=== PATIENT | female | born 1950 | race Caucasian/White ===

== ENCOUNTER 2024-01-20 07:13 | Emergency (ER) | payer BC ==
[2024-01-20] MEDS ORDERED: Sodium Chloride 0.9% 10 ML Syringe FLUSH PRN (07:54)
[2024-01-20] MEDS: Sodium Chloride 0.9% 1,000 ML IV ONE (08:01)
[2024-01-20 08:02] LABS: BASOPHILS PERCENT AUTO 0.1 % (0.0-1.0); EOSINOPHILS PERCENT AUTO 0.1 % (1.0-3.0); HEMATOCRIT 36.3 % (37.0-47.0); HEMOGLOBIN 11.5 g/dL (12.0-16.0); LYMPHOCYTES PERCENT AUTO 9.8 % (20.5-50.1); MEAN CORPUSCULAR HEMOGLOBIN 28.9 pg (27.0-34.0); MEAN CORPUSCULAR HGB CONC 31.7 g/dL (33.0-35.0); MEAN CORPUSCULAR VOLUME 91.2 fL (80-100); PLATELET COUNT,PLT 576 10^3/uL (150-450); RED BLOOD CELL COUNT 3.98 10^6/uL (4.2-5.4)
[2024-01-20 08:11] LABS: ALANINE AMINOTRANSFERASE,ALT 17 U/L (14-59); ALBUMIN 3.2 g/dL (3.4-5.0); ALKALINE PHOSPHATASE 103 U/L (46-116); AMYLASE 55 U/L (25-115); ANION GAP 12.7 mEq/L (7-13); ASPARTATE AMNIOTRANSFERASE,AST 22 U/L (15-37); BILIRUBIN TOTAL 0.3 mg/dL (0.2-1.0); BLOOD UREA NITROGEN,BUN 82 mg/dL (7-18); BUN/CREATININE RATIO 23.8 (No establ ref range); CALCIUM 10.8 mg/dL (8.5-10.1); CARBON DIOXIDE,CO2 22 mmol/L (21-32); CHLORIDE,CL 95 mmol/L (98-107); CREATININE 3.44 mg/dL (0.55-1.02); GLUCOSE RANDOM 198 mg/dL (70-99); LIPASE 68 U/L (16-77); MAGNESIUM 2.4 mg/dL (1.8-2.4); POTASSIUM,K 5.7 mmol/L (3.5-5.1); PROTEIN TOTAL,TP 8.8 g/dL (6.4-8.2); SODIUM,NA 124 mmol/L (136-145)
[2024-01-20 08:13] LABS: A/G RATIO 0.57; ESTIMATED GFR 13 mL/min (>=60)
[2024-01-20] MEDS: Pantoprazole 40 MG Vial IVPUSH ONE ×3 (08:42→10:03)
[2024-01-20] MEDS: Pantoprazole 80 MG in Sodium Chloride 0.9% 100 ML IV SCH (09:05)
[2024-01-20] MEDS: Pantoprazole 40 MG Vial IV SCH (09:18)
== END 2024-01-20 09:57 ==
LOC: DL.ED 07:13
DX: K92.1 Melena (principal); Z79.01 Long term (current) use of anticoagulants; Z79.899 Other long term (current) drug therapy
CPT/HCPCS: 36415; 80053; 82150; 82272; 83690; 83735; 85025; 96361; 96365; 99285; 99285-25; J2470; J3490; J7030

== ENCOUNTER 2024-10-10 14:51 | Inpatient (IN) | payer MEDICARE, BC ==
[2024-10-10] MEDS ORDERED: Sodium Chloride 0.9% 10 ML Syringe FLUSH PRN (15:31)
[2024-10-10] MEDS: Potassium Chloride 10 MEQ Tab.ER PO ONE (15:43)
[2024-10-10 16:02] LABS: INR 1.1 (0.9-1.2); PROTHROMBIN TIME 11.1 SEC (9.0-12.0)
[2024-10-10] MEDS: Furosemide 40 MG/4 ML VIAL IVPUSH ONE (16:23)
[2024-10-10 17:13] LABS: BASOPHILS PERCENT AUTO 0.2 % (0.0-1.0); EOSINOPHILS PERCENT AUTO 1.7 % (1.0-3.0); HEMATOCRIT 37.1 % (37.0-47.0); HEMOGLOBIN 11.4 g/dL (12.0-16.0); LYMPHOCYTES PERCENT AUTO 18.6 % (20.5-50.1); MEAN CORPUSCULAR HEMOGLOBIN 28.3 pg (27.0-34.0); MEAN CORPUSCULAR HGB CONC 30.7 g/dL (33.0-35.0); MEAN CORPUSCULAR VOLUME 92.1 fL (80-100); MONOCYTES PERCENT AUTO 9.4 % (2-8); NEUTROPHILS PERCENT AUTO 70.1 % (42.2-75.2); PLATELET COUNT,PLT 306 10^3/uL (150-450); RED BLOOD CELL COUNT 4.03 10^6/uL (4.2-5.4); WHITE BLOOD CELL COUNT,WBC 8.4 10^3/uL (5.0-10.0)
[2024-10-10 17:26] LABS: ALBUMIN 2.8 g/dL (3.4-5.0); ANION GAP 10.6 mEq/L (7-13); BILIRUBIN TOTAL 0.6 mg/dL (0.2-1.0); BUN/CREATININE RATIO 13.1 (No establ ref range); CALCIUM 8.3 mg/dL (8.5-10.1); CREATININE 1.07 mg/dL (0.55-1.02); EST CRCL DRUG DOSING (CG) 40.73 mL/min; POTASSIUM,K 3.6 mmol/L (3.5-5.1); PROTEIN TOTAL,TP 7.5 g/dL (6.4-8.2)
[2024-10-10 17:33] LABS: A/G RATIO 0.6
[2024-10-10] MEDS ORDERED: Albuterol/Ipratropium 3.0-0.5 MG/3 ML Neb Soln NEB PRN (18:24)
[2024-10-10] MEDS ORDERED: Bisacodyl 5 MG Tab PO PRN (18:24)
[2024-10-10] MEDS ORDERED: Polyethylene Glycol 3350 Powder 17 GM Packet PO PRN (18:24)
[2024-10-10] MEDS ORDERED: Sennosides/Docusate Sodium 50-8.6 MG Tab PO PRN (18:24)
[2024-10-10] MEDS ORDERED: Docusate Sodium 100 MG Cap PO PRN (18:24)
[2024-10-10] MEDS ORDERED: Ondansetron 4 MG/2 ML SDV IVPUSH PRN (18:24)
[2024-10-10] MEDS: Magnesium Sulf/Wat 2 GM/50 mL 2 GM in Premix Bag 1 BAG IV ONE ×3 (19:44→22:55)
[2024-10-10] MEDS ORDERED: Magnesium Sulf/Wat 2 GM/50 mL 2 GM in Premix Bag 1 BAG IV ONE (20:30)
[2024-10-10] MEDS: Pantoprazole 40 MG Tab.CR PO SCH (20:31)
[2024-10-10] MEDS: Melatonin 3 MG Tab PO PRN (20:31)
[2024-10-10] MEDS: Empagliflozin 10 MG Tab PO SCH (20:31)
[2024-10-10] MEDS: oxyCODONE 5 MG Tab PO PRN (20:32)
[2024-10-11 07:27] LABS: ALBUMIN 2.4 g/dL (3.4-5.0); ANION GAP 6.5 mEq/L (7-13); BILIRUBIN TOTAL 0.6 mg/dL (0.2-1.0); BUN/CREATININE RATIO 11.9 (No establ ref range); CALCIUM 8.5 mg/dL (8.5-10.1); CREATININE 1.01 mg/dL (0.55-1.02); EST CRCL DRUG DOSING (CG) 43.15 mL/min; MAGNESIUM 2.3 mg/dL (1.8-2.4); PERCENT FE SATURATION 20.4 % (20.0-50.0); POTASSIUM,K 3.5 mmol/L (3.5-5.1); PROTEIN TOTAL,TP 6.4 g/dL (6.4-8.2)
[2024-10-11 07:31] LABS: A/G RATIO 0.6
[2024-10-11 07:35] LABS: BASOPHILS PERCENT AUTO 0.3 % (0.0-1.0); HEMATOCRIT 33.7 % (37.0-47.0); HEMOGLOBIN 10.7 g/dL (12.0-16.0); LYMPHOCYTES PERCENT AUTO 26.6 % (20.5-50.1); MEAN CORPUSCULAR HEMOGLOBIN 29.2 pg (27.0-34.0); MEAN CORPUSCULAR HGB CONC 31.8 g/dL (33.0-35.0); MEAN CORPUSCULAR VOLUME 91.8 fL (80-100); MONOCYTES PERCENT AUTO 13.2 % (2-8); NEUTROPHILS PERCENT AUTO 57.9 % (42.2-75.2); PLATELET COUNT,PLT 261 10^3/uL (150-450); RED BLOOD CELL COUNT 3.67 10^6/uL (4.2-5.4); WHITE BLOOD CELL COUNT,WBC 6.6 10^3/uL (5.0-10.0)
[2024-10-11] MEDS: Metoprolol Succinate 25 MG Tab.ER PO SCH (08:45)
[2024-10-11] MEDS: atorvaSTATin 20 MG Tab PO SCH (08:45)
[2024-10-11] MEDS: Aspirin 81 MG Tab.EC PO SCH (08:45)
[2024-10-11] MEDS: Amiodarone 200 MG Tab PO SCH (08:45)
[2024-10-11] MEDS: Escitalopram 10 MG Tab PO SCH (08:46)
[2024-10-11] MEDS: Clopidogrel 75 MG Tab PO SCH (08:46)
[2024-10-11] MEDS: Furosemide 40 MG Tab PO SCH (10:00)
[2024-10-12 06:37] LABS: EOSINOPHILS PERCENT AUTO 1.6 % (1.0-3.0); HEMATOCRIT 34.7 % (37.0-47.0); HEMOGLOBIN 10.9 g/dL (12.0-16.0); LYMPHOCYTES PERCENT AUTO 26.2 % (20.5-50.1); MEAN CORPUSCULAR HEMOGLOBIN 28.9 pg (27.0-34.0); MEAN CORPUSCULAR HGB CONC 31.4 g/dL (33.0-35.0); MONOCYTES PERCENT AUTO 13.7 % (2-8); NEUTROPHILS PERCENT AUTO 58.5 % (42.2-75.2); PLATELET COUNT,PLT 251 10^3/uL (150-450); RED BLOOD CELL COUNT 3.77 10^6/uL (4.2-5.4); WHITE BLOOD CELL COUNT,WBC 6.9 10^3/uL (5.0-10.0)
[2024-10-12 07:08] LABS: ALBUMIN 2.4 g/dL (3.4-5.0); ANION GAP 8.7 mEq/L (7-13); BILIRUBIN TOTAL 0.6 mg/dL (0.2-1.0); BUN/CREATININE RATIO 12.9 (No establ ref range); CALCIUM 8.8 mg/dL (8.5-10.1); CREATININE 1.01 mg/dL (0.55-1.02); EST CRCL DRUG DOSING (CG) 41.99 mL/min; MAGNESIUM 1.9 mg/dL (1.8-2.4); POTASSIUM,K 3.7 mmol/L (3.5-5.1); PROTEIN TOTAL,TP 6.5 g/dL (6.4-8.2)
[2024-10-12 07:09] LABS: A/G RATIO 0.59
[2024-10-12] MEDS: Potassium Chloride 10 MEQ Tab.ER PO ONE ×2 (08:56→14:15)
[2024-10-12] MEDS: Acetaminophen 325 MG Tab PO PRN (08:57)
[2024-10-12] MEDS: Magnesium Oxide 400 MG Tab PO SCH (09:00)
[2024-10-12] MEDS: Furosemide 40 MG Tab PO ONE (14:16)
[2024-10-13 06:30] LABS: BASOPHILS PERCENT AUTO 0.1 % (0.0-1.0); EOSINOPHILS PERCENT AUTO 0.5 % (1.0-3.0); HEMATOCRIT 32.7 % (37.0-47.0); HEMOGLOBIN 10.4 g/dL (12.0-16.0); LYMPHOCYTES PERCENT AUTO 19.4 % (20.5-50.1); MEAN CORPUSCULAR HEMOGLOBIN 29.1 pg (27.0-34.0); MEAN CORPUSCULAR HGB CONC 31.8 g/dL (33.0-35.0); MEAN CORPUSCULAR VOLUME 91.6 fL (80-100); MONOCYTES PERCENT AUTO 14.9 % (2-8); NEUTROPHILS PERCENT AUTO 65.1 % (42.2-75.2); PLATELET COUNT,PLT 247 10^3/uL (150-450); RED BLOOD CELL COUNT 3.57 10^6/uL (4.2-5.4); WHITE BLOOD CELL COUNT,WBC 9.3 10^3/uL (5.0-10.0)
[2024-10-13 06:52] LABS: ALBUMIN 2.2 g/dL (3.4-5.0); ANION GAP 9.8 mEq/L (7-13); BILIRUBIN TOTAL 0.7 mg/dL (0.2-1.0); BUN/CREATININE RATIO 13.9 (No establ ref range); CALCIUM 8.6 mg/dL (8.5-10.1); CREATININE 1.08 mg/dL (0.55-1.02); EST CRCL DRUG DOSING (CG) 39.01 mL/min; MAGNESIUM 1.7 mg/dL (1.8-2.4); POTASSIUM,K 3.8 mmol/L (3.5-5.1); PROTEIN TOTAL,TP 6.2 g/dL (6.4-8.2)
[2024-10-13 06:53] LABS: A/G RATIO 0.55
[2024-10-13] MEDS: guaiFENesin 600 MG Tab.ER PO SCH (16:37)
[2024-10-13] MEDS: Azithromycin 250 MG Tab PO SCH (16:38)
[2024-10-13] MEDS: predniSONE 20 MG Tab PO SCH (16:38)
[2024-10-13] MEDS: Magnesium Oxide 400 MG Tab PO SCH (16:38)
[2024-10-13] MEDS: cefTRIAXone 1 GM Vial IVPUSH SCH (16:40)
[2024-10-14] MEDS: predniSONE 20 MG Tab PO SCH (04:33)
[2024-10-14] MEDS: guaiFENesin 600 MG Tab.ER PO SCH (04:35)
[2024-10-14] MEDS: Azithromycin 250 MG Tab PO SCH (04:36)
[2024-10-14 06:24] LABS: BASOPHILS PERCENT AUTO 0.1 % (0.0-1.0); HEMOGLOBIN 10.5 g/dL (12.0-16.0); LYMPHOCYTES PERCENT AUTO 12.1 % (20.5-50.1); MEAN CORPUSCULAR HEMOGLOBIN 28.8 pg (27.0-34.0); MEAN CORPUSCULAR HGB CONC 31.8 g/dL (33.0-35.0); MEAN CORPUSCULAR VOLUME 90.4 fL (80-100); NEUTROPHILS PERCENT AUTO 76.8 % (42.2-75.2); PLATELET COUNT,PLT 254 10^3/uL (150-450); RED BLOOD CELL COUNT 3.65 10^6/uL (4.2-5.4); WHITE BLOOD CELL COUNT,WBC 10.3 10^3/uL (5.0-10.0)
[2024-10-14 06:50] LABS: A/G RATIO 0.5; ALBUMIN 2.2 g/dL (3.4-5.0); BILIRUBIN TOTAL 0.5 mg/dL (0.2-1.0); BUN/CREATININE RATIO 17.1 (No establ ref range); CALCIUM 9.2 mg/dL (8.5-10.1); CREATININE 1.17 mg/dL (0.55-1.02); EST CRCL DRUG DOSING (CG) 35.64 mL/min; MAGNESIUM 1.8 mg/dL (1.8-2.4); PROTEIN TOTAL,TP 6.6 g/dL (6.4-8.2)
[2024-10-14] MEDS: Potassium Chloride 10 MEQ Tab.ER PO ONE (08:41)
[2024-10-14] MEDS: cefTRIAXone 1 GM Vial IVPUSH ONE (10:03)
[2024-10-14] MEDS ORDERED: Potassium Chloride 10 MEQ Tab.ER PO SCH (17:00)
== END 2024-10-14 10:20 | disposition home or self-care (01) | DRG 291 ==
LOC: DL.ED 14:51 → DL.MS 16:15
PROVIDERS: ADMIT Internal Medicine; ATTEND Internal Medicine
DX: I13.0 Hypertensive heart and chronic kidney disease with heart failure and stage 1 through stage 4 chronic kidney disease, or unspecified chronic kidney disease (principal); J18.9 Pneumonia, unspecified organism; E87.0 Hyperosmolality and hypernatremia; I50.9 Heart failure, unspecified; I25.10 Atherosclerotic heart disease of native coronary artery without angina pectoris; N18.9 Chronic kidney disease, unspecified; F41.9 Anxiety disorder, unspecified; D63.8 Anemia in other chronic diseases classified elsewhere; E83.42 Hypomagnesemia; E88.09 Other disorders of plasma-protein metabolism, not elsewhere classified; I48.0 Paroxysmal atrial fibrillation; E86.0 Dehydration; Z79.82 Long term (current) use of aspirin; Z79.899 Other long term (current) drug therapy; Z98.890 Other specified postprocedural states; Z86.73 Personal history of transient ischemic attack (TIA), and cerebral infarction without residual deficits; Z87.891 Personal history of nicotine dependence; Z95.5 Presence of coronary angioplasty implant and graft
CPT/HCPCS: 36415; 71046; 80053; 82728; 82947; 83540; 83550; 83735; 83880; 83935; 84484; 85025; 85610; 87040; 93005; 93010; 94010; 97161-GP; 97165-GO; 99223; 99232; 99233; 99238; 99285; A9270-GY; J0696; J1938; J3475; J7512

== ENCOUNTER 2024-11-14 15:24 | Observation (INO) | payer MEDICARE, BC ==
[2024-11-14] MEDS ORDERED: Sodium Chloride 0.9% 10 ML Syringe FLUSH PRN (15:42)
[2024-11-14 16:16] LABS: BASOPHILS PERCENT AUTO 0.1 % (0.0-1.0); EOSINOPHILS PERCENT AUTO 1.3 % (1.0-3.0); HEMATOCRIT 34.4 % (37.0-47.0); HEMOGLOBIN 10.9 g/dL (12.0-16.0); LYMPHOCYTES PERCENT AUTO 17.8 % (20.5-50.1); MEAN CORPUSCULAR HEMOGLOBIN 28.3 pg (27.0-34.0); MEAN CORPUSCULAR HGB CONC 31.7 g/dL (33.0-35.0); MEAN CORPUSCULAR VOLUME 89.4 fL (80-100); MONOCYTES PERCENT AUTO 12.2 % (2-8); NEUTROPHILS PERCENT AUTO 68.6 % (42.2-75.2); PLATELET COUNT,PLT 344 10^3/uL (150-450); RED BLOOD CELL COUNT 3.85 10^6/uL (4.2-5.4)
[2024-11-14 16:39] LABS: ALBUMIN 2.2 g/dL (3.4-5.0); ANION GAP 9.8 mEq/L (7-13); BILIRUBIN TOTAL 0.4 mg/dL (0.2-1.0); BUN/CREATININE RATIO 14.2 (No establ ref range); CALCIUM 8.1 mg/dL (8.5-10.1); CREATININE 1.2 mg/dL (0.55-1.02); EST CRCL DRUG DOSING (CG) 34.93 mL/min; POTASSIUM,K 2.8 mmol/L (3.5-5.1); PROTEIN TOTAL,TP 7.1 g/dL (6.4-8.2)
[2024-11-14 16:40] LABS: A/G RATIO 0.45; MAGNESIUM 0.9 mg/dL (1.8-2.4)
[2024-11-14] MEDS: Sodium Chloride 0.9% 500 ML IV SCH (17:26)
[2024-11-14] MEDS: Potassium Chloride 20 MEQ in Premix Bag 1 BAG IV ONE (17:26)
[2024-11-14] MEDS: Potassium Chloride 10 MEQ Tab.ER PO ONE (17:26)
[2024-11-14] MEDS: Magnesium Sulf/Wat 4 GM/50 mL 4 GM in Premix Bag 1 BAG IV ONE (17:46)
[2024-11-14] MEDS ORDERED: Ondansetron 4 MG/2 ML SDV IVPUSH PRN (18:44)
[2024-11-14] MEDS ORDERED: Acetaminophen 325 MG Tab PO PRN (18:44)
[2024-11-14] MEDS ORDERED: Bisacodyl 5 MG Tab PO PRN (18:44)
[2024-11-14] MEDS ORDERED: Docusate Sodium 100 MG Cap PO PRN (18:44)
[2024-11-14] MEDS ORDERED: Polyethylene Glycol 3350 Powder 17 GM Packet PO PRN (18:44)
[2024-11-14] MEDS: Melatonin 3 MG Tab PO PRN (21:07)
[2024-11-14] MEDS: Pantoprazole 40 MG Tab.CR PO SCH (21:07)
[2024-11-14 22:28] LABS: MAGNESIUM 1.9 mg/dL (1.8-2.4)
[2024-11-14 22:29] LABS: POTASSIUM,K 4.2 mmol/L (3.5-5.1)
[2024-11-15] MEDS: Escitalopram 10 MG Tab PO SCH (08:08)
[2024-11-15] MEDS: Furosemide 40 MG Tab PO SCH (08:08)
[2024-11-15] MEDS: atorvaSTATin 20 MG Tab PO SCH (08:08)
[2024-11-15] MEDS: Clopidogrel 75 MG Tab PO SCH (08:08)
[2024-11-15] MEDS: Metoprolol Succinate 25 MG Tab.ER PO SCH (08:09)
[2024-11-15] MEDS: Aspirin 81 MG Tab.EC PO SCH (08:09)
[2024-11-15] MEDS: Amiodarone 200 MG Tab PO SCH (08:09)
[2024-11-15 08:21] LABS: BASOPHILS PERCENT AUTO 0.1 % (0.0-1.0); EOSINOPHILS PERCENT AUTO 1.4 % (1.0-3.0); HEMATOCRIT 33.5 % (37.0-47.0); HEMOGLOBIN 10.7 g/dL (12.0-16.0); MEAN CORPUSCULAR HEMOGLOBIN 28.6 pg (27.0-34.0); MEAN CORPUSCULAR HGB CONC 31.9 g/dL (33.0-35.0); MEAN CORPUSCULAR VOLUME 89.6 fL (80-100); MONOCYTES PERCENT AUTO 11.9 % (2-8); NEUTROPHILS PERCENT AUTO 68.6 % (42.2-75.2); PLATELET COUNT,PLT 313 10^3/uL (150-450); RED BLOOD CELL COUNT 3.74 10^6/uL (4.2-5.4); WHITE BLOOD CELL COUNT,WBC 9.9 10^3/uL (5.0-10.0)
[2024-11-15 08:42] LABS: A/G RATIO 0.44; ALBUMIN 2.2 g/dL (3.4-5.0); ANION GAP 11.8 mEq/L (7-13); BILIRUBIN TOTAL 0.5 mg/dL (0.2-1.0); BUN/CREATININE RATIO 14.6 (No establ ref range); CALCIUM 8.8 mg/dL (8.5-10.1); CREATININE 1.03 mg/dL (0.55-1.02); EST CRCL DRUG DOSING (CG) 40.45 mL/min; MAGNESIUM 1.8 mg/dL (1.8-2.4); POTASSIUM,K 3.8 mmol/L (3.5-5.1); PROTEIN TOTAL,TP 7.2 g/dL (6.4-8.2)
== END 2024-11-15 11:09 | disposition home or self-care (01) ==
LOC: DL.ED 15:24 → DL.MS 18:30 → DL.ED 18:58
PROVIDERS: ADMIT Student in an Organized Health Care Education/Training Program; ATTEND Student in an Organized Health Care Education/Training Program
DX: E83.42 Hypomagnesemia (principal); E87.6 Hypokalemia; I13.0 Hypertensive heart and chronic kidney disease with heart failure and stage 1 through stage 4 chronic kidney disease, or unspecified chronic kidney disease; I50.30 Unspecified diastolic (congestive) heart failure; N18.9 Chronic kidney disease, unspecified; I25.10 Atherosclerotic heart disease of native coronary artery without angina pectoris; F41.9 Anxiety disorder, unspecified; Z79.899 Other long term (current) drug therapy
CPT/HCPCS: 36415; 71045; 80053; 83735; 83880; 84132; 84484; 85025; 93005; 93010; 96365; 96366; 96368; 99223; 99238; 99285; A9270; G0378; J3475; J3480; J7040

== ENCOUNTER 2025-02-22 14:32 | Emergency (ER) | payer MEDICARE, BC ==
[2025-02-22] MEDS ORDERED: Sodium Chloride 0.9% 10 ML Syringe FLUSH PRN ×2 (14:45)
[2025-02-22 15:01] LABS: BASOPHILS PERCENT AUTO 0.2 % (0.0-1.0); EOSINOPHILS PERCENT AUTO 1.8 % (1.0-3.0); LYMPHOCYTES PERCENT AUTO 37.7 % (20.5-50.1); MONOCYTES PERCENT AUTO 12.6 % (2-8); NEUTROPHILS PERCENT AUTO 47.7 % (42.2-75.2); PLATELET COUNT,PLT 346 10^3/uL (150-450); RED BLOOD CELL COUNT 3.03 10^6/uL (4.2-5.4); WHITE BLOOD CELL COUNT,WBC 6.5 10^3/uL (5.0-10.0)
[2025-02-22 15:14] LABS: INR 1.1 (0.9-1.2)
[2025-02-22 15:22] LABS: A/G RATIO 0.72; ALANINE AMINOTRANSFERASE,ALT 17.0 U/L (14-59); ASPARTATE AMNIOTRANSFERASE,AST 15.0 U/L (15-37); BILIRUBIN TOTAL 0.2 mg/dL (0.2-1.0); BLOOD UREA NITROGEN,BUN 34.0 mg/dL (7-18); CARBON DIOXIDE,CO2 29.0 mmol/L (21-32); CHLORIDE,CL 104.0 mmol/L (98-107); CREATININE 1.85 mg/dL (0.55-1.02); EST CRCL DRUG DOSING (CG) 21.73 mL/min; ESTIMATED GFR 28.0 mL/min (>=60); GLUCOSE RANDOM 121.0 mg/dL (70-99); POTASSIUM,K 4.7 mmol/L (3.5-5.1); PROTEIN TOTAL,TP 7.4 g/dL (6.4-8.2); SODIUM,NA 137.0 mmol/L (136-145)
[2025-02-22] MEDS: Propofol 200 MG/20 ML SDV IVPUSH ONE (15:40)
== END 2025-02-22 18:28 | disposition home or self-care (01) ==
LOC: DL.ED 14:32
DX: S82.52XA Displaced fracture of medial malleolus of left tibia, initial encounter for closed fracture (principal); K92.1 Melena; D64.9 Anemia, unspecified; I11.0 Hypertensive heart disease with heart failure; I50.9 Heart failure, unspecified; Z79.899 Other long term (current) drug therapy; Z90.49 Acquired absence of other specified parts of digestive tract; W19.XXXA Unspecified fall, initial encounter
CPT/HCPCS: 27788; 36415; 73600; 73610; 80053; 82272; 84484; 85025; 85610; 93005; 93010; 99152; 99153; 99283; 99284; A9270; J2704